=== PATIENT | female | born 1940 | race Hispanic/Latino ===

== ENCOUNTER 2018-01-25 06:25 | Day surgery (SDC) | payer MEDICARE ==
[~2018-01-25 06:25] MED LIST: ANCEF/STERILE WATER 2 GM/20 ML 2 GM/20 ML SYRINGE IV NR
[2018-01-25 07:28] LABS: Basophils # (Auto) 0.1 K/mm3 (0.0-0.1); Eosinophils # (Auto) 0.6 K/mm3 (0.0-0.4); Eosinophils % (Auto) 6.8 % (0.0-4.3); Hematocrit 38.8 % (30.3-42.9); Hemoglobin 13.4 gm/dl (10.1-14.3); Lymphocytes % (Auto) 25.1 % (13.4-35.0); Mean Corpuscular HGB Conc 35 % (30-34); Mean Corpuscular Hemoglobin 30 pg (28-32); Mean Corpuscular Volume 88 fl (79-97); Monocytes # (Auto) 0.6 K/mm3 (0.0-0.8); Platelet Count 441 K/mm3 (140-440); Red Cell Distribution Width 13.5 % (13.2-15.2)
[2018-01-25 07:37] LABS: INR 0.92 (0.87-1.13); Partial Thromboplastin Time 29.7 Sec. (24.2-36.6)
[2018-01-25 07:49] LABS: BUN/Creatinine Ratio 26; Blood Urea Nitrogen 18 mg/dL (7-17); Calcium 9.9 mg/dL (8.4-10.2); Hemolysis Index 6
[2018-01-25] MEDS: NACL 0.9% 1000 ML 1,000 ML IV SCH ×2 (08:06→09:16)
[2018-01-25] MEDS ORDERED: XYLOCAINE 2% INFILTRATI ONE (08:17)
[2018-01-25] MEDS ORDERED: HEPARIN 10,000 UNITS/10 ML ONE (08:17)
[2018-01-25] MEDS ORDERED: HEPARIN/NS 5000 UNIT/500ML(CATH LAB) 1,000 ML IR ONE (08:17)
[2018-01-25] MEDS: SUBLIMAZE ONE ×4 (09:18→10:27)
[2018-01-25] MEDS: VERSED ONE ×5 (09:18→10:27)
[2018-01-25] MEDS ORDERED: NACL 0.9% 1000 ML 1,000 ML ONE (09:52)
--- NOTE | 2018-01-25 11:00 | Short Stay Summary ---
Short Stay Documentation Date of service: 01/25/18 Narrative H&P: See H&P - History H&P: obtained from office - Allergies and Medications Current Medications: Allergies No Known Allergies Allergy (Verified 01/25/18 06:47) Home Medications Medication Instructions Recorded Confirmed Last Taken Type Aliskiren Hemifumarate [Tekturna] 300 mg PO DAILY 01/25/18 01/25/18 01/25/18 05: 00 History 300mg Losartan Potassium [Cozaar] 100 mg PO DAILY 01/25/18 01/25/18 01/25/18 05:00 History Metoprolol Xl [Metoprolol 25 mg PO DAILY 01/25/18 01/25/18 01/25/18 05:00 History SUCCINATE ER TAB] 25mg amLODIPine [Norvasc] 10 mg PO DAILY 01/25/18 01/25/18 01/25/18 05:00 History Active Medications Cefazolin Sodium (Ancef/Sterile Water 2 Gm/20 Ml) 2 gm in 20 mls @ 80 mls/hr IV PREOP NR; Protocol Stop: 01/25/18 23:59 Last Admin: 01/25/18 09:17 Dose: 20 mls Sodium Chloride (Nacl 0.9% 1000 Ml) 1,000 mls @ 42 mls/hr IV DIRECT HALINA Last Admin: 01/25/18 09:16 Dose: 42 mls/hr - Brief post op/procedure progress note Date of procedure: 01/25/18 Pre-op diagnosis: PVD with Right Lower Extremity Claudication and Limited IV Access Post-op diagnosis: same Procedure: 1. Ultrasound-Guided Access Left Femoral Vein 2. Placement of 4 Prydeinig Sheath in the Femoral Vein 3. Diagnostic Aortogram with Right Lower Extremity Runoff (No Previous Films for Comparison) 4. Atherectomy with Angioplasty of Right SFA and Popliteal Arteries with 2.4/ 3.4 JetStream Atherectomy Catheter And 5 x 220 Balloon in the Popliteal Artery and 5 x 150 IN.PACT Drug-Coated Balloon in the Proximal Superficial Femoral Artery 5. Percutaneous Embolectomy with of the Below-Knee Popliteal Artery with 6 Prydeinig Multipurpose Catheter 6. Closure of Left Femoral Arteriotomy with ProGlide Closure Device 7. Radiologic Supervision with Interpretation Anesthesia: local, other (IV sedation) Surgeon: SAUMYA WORRELL Estimated blood loss: minimal Pathology: none Condition: stable - Disposition Condition at discharge: Good Disposition: [id number] TO HOME OR SELFCARE Short Stay Discharge Plan Activity: other (no strenuous activity for 24 hours) Wound: remove dressing (24 hours) Follow up with: SAUMYA WORRELL MD [Staff Physician] - 14 Days Prescriptions: Aspirin EC [Aspirin Enteric Coated TAB] 81 mg PO QDAY #90 tablet. Clopidogrel Bisulfate [Plavix] 75 mg PO DAILY #90 tablet
[2018-01-25] MEDS ORDERED: PLAVIX PO ONE (11:06)
--- NOTE | 2018-01-25 11:06 | Operative Report ---
Operative Report Operative Report: Date of Procedure: 01/25/2018 Pre-operative Diagnosis: PVD with Right Lower Extremity Claudication and Limited IV Access Post-operative Diagnosis: Same Procedure(s): 1. Ultrasound-Guided Access Left Femoral Vein 2. Placement of 4 Bulgarian Sheath in the Femoral Vein 3. Diagnostic Aortogram with Right Lower Extremity Runoff (No Previous Films for Comparison) 4. Atherectomy with Angioplasty of Right SFA and Popliteal Arteries with 2.4/ 3.4 JetStream Atherectomy Catheter And 5 x 220 Balloon in the Popliteal Artery and 5 x 150 IN.PACT Drug-Coated Balloon in the Proximal Superficial Femoral Artery 5. Percutaneous Embolectomy with of the Below-Knee Popliteal Artery with 6 Bulgarian Multipurpose Catheter 6. Closure of Left Femoral Arteriotomy with ProGlide Closure Device 7. Radiologic Supervision with Interpretation Surgeon: Andres Esparza M.D. Facilities Administrator: Rima Anesthesia: Local and IV Sedation EBL: Minimal Counts: Correct Complications: None Condition: Stable Specimen: None Indication: The patient is a 77-year-old female with a history of peripheral vascular disease who presented to the office with complaints of shortness claudication. She is in need of a diagnostic arteriogram with possible intervention. She was given the risks, benefits, and alternative procedures and consented to the procedure. Angiographic Findings: The aortogram demonstrated that the aorta was widely patent. Bilateral common iliacs and hypogastrics were widely patent. The right lower extremity arteriogram demonstrated the right external iliac was widely patent. The common femoral artery and profunda were patent. The right superficial femoral artery occluded shortly after it's origin and had a patent floating segment in the mid SFA and this was atretic. Reconstitution of flow in the atretic portion of the popliteal artery above the knee and then the popliteal artery just at the level of the knee became normal caliber. The below proximal artery was widely patent. The patient had 2 vessel runoff through a anterior tibial artery and peroneal artery that were patent without significant flow-limiting stenosis. The posterior tibial artery was occluded but reconstituted at the ankle through collaterals from the peroneal artery. After intervention the SFA and popliteal arteries were widely patent with less than 10% residual stenosis and no evidence of flow limiting dissection. Description of Procedure: The patient was brought into the laborer/key man and laid in supine position. Her left arm was then prepped and draped in normal sterile fashion. She initially had an IV placed in her left arm however IV was poorly functioning so he required IV access and the femoral vein. Ultrasound was used to identify and confirm patency of the left femoral vein. The overlying skin is soft tissue was anesthetized with lidocaine a small stab incision was created. An access needle was used with ultrasound guidance and in the left femoral vein and then a 0.035 Bentson wire was advanced under fluoroscopy. A 4 Bulgarian sheath was advanced into the vein by Seldinger technique and sewn into place using 0 silk. The sheath was then aspirated and flushed and at this point the patient was able to be sedated. Identified the left common femoral artery using ultrasound. The overlying skin and soft tissue was then anesthetized with lidocaine. A small stab incision was made and the micropuncture technique was used with ultrasound guidance into the left common femoral artery. A 0.035 Bentson wire was advanced to the aorta under fluoroscopy. A 5 Bulgarian sheath was then placed by Seldinger technique. An Omni Flush catheter was advanced into the aorta and an aortogram was performed. This wire and Omni Flush catheter were advanced up and over the bifurcation and a right lower extremity arteriograms performed with the previously described findings. The Bentson wire was then advanced over the bifurcation and the 5 Bulgarian sheath was then exchanged for 7 Bulgarian 45 cm destination sheath. At this point the patient was systemically heparinized. I used several different combination of catheters and wires but eventually was able to cross the lesion using a 30 g 0.018 Victory wire and 0.018 Crossing catheter. Into the distal artery was confirmed by arteriogram. Once this confirmed advanced a 0.014 Spartacore wire into the peroneal artery and then performed atherectomy of the SFA and popliteal artery with both blades down and blades up. I then performed a low pressure balloon inflations of the popliteal artery and SFA with a 5 x 220 balloon. I then further treated the SFA with a 5 x 150 IN.PACT Drug-Coated balloon. Follow-up arteriogram at the SFA and popliteal arteries were widely patent with less than 10% residual stenosis however there was dense of embolic debris in the distal popliteal artery just proximal to the trifurcation. I advanced a 6 Bulgarian MP catheter to the distal popliteal artery and aspirated at the area. I flushed the catheter on the back table which revealed plaque within the catheter. The follow-up arteriogram demonstrated that the debris was now removed. I pulled the sheath back into the left external iliac artery and performed a left anterior oblique injection that demonstrated the sheath was just above the bifurcation so I used a ProGlide to close the left femoral arteriotomy. The patient tolerated the procedure well. All sponge, needle, and instrument counts were correct. The patient was taken to the recovery area in stable condition.
[2018-01-25 12:31] VITALS: BP 137/58
== END 2018-01-25 13:00 | disposition home or self-care (01) ==
LOC: CATHLABREC 06:25
PROVIDERS: ATTEND Surgery Vascular Surgery
DX: I73.9 Peripheral vascular disease, unspecified (principal); I10 Essential (primary) hypertension; F17.210 Nicotine dependence, cigarettes, uncomplicated; Z79.82 Long term (current) use of aspirin; Z79.899 Other long term (current) drug therapy; Z79.01 Long term (current) use of anticoagulants; Z98.49 Cataract extraction status, unspecified eye; E78.00 Pure hypercholesterolemia, unspecified; Z80.8 Family history of malignant neoplasm of other organs or systems; Z98.890 Other specified postprocedural states; Z83.49 Family history of other endocrine, nutritional and metabolic diseases; Z80.0 Family history of malignant neoplasm of digestive organs
CPT/HCPCS: 36415; 37225; 75625; 75710; 80048; 85025; 85610; 85730; 99156; 99157; C1724; C1725; C1760; C1769; C1887; C1894; C2623; J0690; J1644; J2250; J3010; J7030; Q9967